=== PATIENT | female | born 1995 | race Caucasian/White ===

== ENCOUNTER 2016-04-06 19:08 | Emergency (ER) | payer OTHER ==
[~2016-04-06] VITALS: Ht 165.1 cm; Wt 85.1 kg
[~2016-04-06 19:08] MED LIST: ETONMIS VAGRING
[2016-04-06 19:18] VITALS: TEMP 37; Ht 165.1 cm; Wt 85.1 kg
[2016-04-06] MEDS ORDERED: GLC500 PO (20:32)
--- NOTE | 2016-04-06 21:29 | DIAGNOSTIC IMAGING REPORT ---
CHEST 2 VIEWS ROUTINE HISTORY: Fever. Chest congestion. Cough. COMPARISON: Chest 06/14/2015. FINDINGS: The lungs are clear. Cardiac silhouette is normal in size. No pleural effusions. No pneumothorax. IMPRESSION: No acute process. Electronically signed by: Junior Harrell M.D. 04/06/2016 9:28 PM Dictated Date/Time: 04/06/2016 9:27 PM
[2016-04-06] MEDS ORDERED: ALBUTEROL HFA 8 GM INHALER INH ONE (21:30)
[2016-04-06] MEDS ORDERED: AZITHROMYCIN 250 MG TAB PO ONE (21:30)
[2016-04-06] MEDS ORDERED: AZIT250T PO (21:33)
[2016-04-06 21:40] VITALS: BP 143/96; PULSE 87; O2SAT 95
--- NOTE | 2016-04-07 01:40 | EMERGENCY ROOM VISIT NOTE ---
History Report prepared by Bárbara: Nery Mehta Under the Supervision of: Dr. Chacho Galeana M.D. First contact with patient: 19:50 Chief Complaint: FLU LIKE SX Stated Complaint: BRONCHITIS History of Present Illness The patient is a 20 year old female who presents to the Emergency Room with complaints of constant flu-like symptoms for the past 4 days. She states that her symptoms have improved slightly. She reports a productive cough with greenish-yellow sputum. She is also feeling occasionally short of breath. She has not taken her temperature but has felt feverish. She notes chills. The patient has been experiencing generalized body aches that are worse in the morning and resolve throughout the day. She states that she has been feeling more "run down." She rates her current pain as a 1/10 in severity. The patient denies vomiting, abdominal pain, pain or swelling in her legs, chance of , and any sick contacts. Source of History: patient Onset: 4 days ago Position: other (global) Symptom Intensity: 1/10 Quality: other (flu-like) Timing: constant Modifying Factors (Worsening): other (time) Modifying Factors (Relieving): other (morning) Associated Symptoms: + SOB, + chills, + cough, + fevers, No abdominal pain, No vomiting Review of Systems See HPI for pertinent positives & negatives. A total of 10 systems reviewed and were otherwise negative. Past Medical & Surgical Medical Problems: (1) No significant past medical history (2) PCOS (polycystic ovarian syndrome) Surgical Problems: (1) No history of previous surgery Family History FH: hypertension Social History Smoking Status: Never Smoker Alcohol Use: occasionally Marital Status: single Housing Status: lives with family Occupation Status: employed Current/Historical Medications Scheduled Azithromycin (Zithromax), 250 MG PO DAILY Etonogestrel/Ethinyl Estradiol (Nuvaring), 1 EA VAGRING MONTHLY Metformin HCl (Metformin HCl), 500 MG PO BID Allergies Coded Allergies: BEE STING (Verified Allergy, Unknown, ., 04/06/16) Pineapple (Unverified Allergy, Unknown, MOUTH TINGLY, 04/06/16) Physical Exam Vital Signs Date Time Temp Pulse Resp B/P Pulse Ox O2 Delivery O2 Flow Rate FiO2 04/06/16 21:40 87 20 143/96 95 04/06/16 21:17 87 20 143/96 95 Room Air 04/06/16 19:18 37.0 91 20 131/82 99 Room Air Physical Exam Constitutional: Vital signs reviewed. Eyes: Pupils are equal round reactive to light. Conjunctiva are noninjected. ENT: Pharynx is clear without erythema or exudate. Mucous membranes are moist. Neck supple without meningeal signs. Respiratory: Clear to auscultation bilaterally. Breath sounds are equal bilaterally. No wheezing or rales. Cardiovascular: Regular rate and rhythm. No rubs or gallops. GI: Soft, nondistended and nontender. Bowel sounds are present. Musculoskeletal: No peripheral edema. No lower extremity tenderness. Integumentary: No cyanosis. Neurological: The patient is awake and alert. No focal deficits. Psychiatric: Normal affect. Medical Decision & Procedures ER Provider Diagnostic Interpretation: Radiology results as stated below per my review and the radiologist's interpretation: CHEST 2 VIEWS ROUTINE HISTORY: Fever. Chest congestion. Cough. COMPARISON: Chest 06/14/2015. FINDINGS: The lungs are clear. Cardiac silhouette is normal in size. No pleural effusions. No pneumothorax. IMPRESSION: No acute process. Electronically signed by: Junior Harrell M.D. 04/06/2016 9:28 PM Laboratory Results Test 04/06/16 20:27 Influenza Type A Antigen Neg for Influ A (NEG) Influenza Type B Antigen Neg for Influ B (NEG) Laboratory results as reviewed by me. Medications Administered Medications (Trade) Dose Ordered Sig/Oren Route Start Time Stop Time Status Last Admin Dose Admin Albuterol (Ventolin Hfa Inhaler) 2 puffs NOW ONCE INH 04/06/16 21:30 04/06/16 21:31 DC 04/06/16 21:36 60 PUFFS Azithromycin (Zithromax Tab) 500 mg NOW ONCE PO 04/06/16 21:30 04/06/16 21:31 DC 04/06/16 21:36 500 MG ED Course 1950: The patient was evaluated in room A10. A complete history and physical exam was performed. 2126: I reassessed the patient at this time. She is feeling better and resting comfortably. I discussed the results and treatment plan with the patient. I answered all pertaining questions that she had. She expressed understanding and verbalized agreement. The patient will be discharged home. 2129: Azithromycin 500 mg PO, Albuterol 2 puffs INH. Medical Decision This is a 20-year-old female who presents with flulike symptoms. Differential diagnosis includes bronchitis, pneumonia, sinusitis, influenza, viral syndrome. I did perform a limited focused review of portions of the patient's old chart on the electronic medical record. The patient has had no recent pertinent visits to this hospital. I did evaluate the patient as noted above. I did order and personally review the patient's chest x-ray as described above. There is no evidence of pneumonia. I did order a rapid flu test which was negative. I did discuss the test results with the patient. She was treated with Zithromax 500 mg and discharged with a prescription for Zithromax. She was also given an albuterol inhaler as she states that in the past status helped her when she had bronchitis. She was advised follow up with her doctor and discharged in good condition. Impression Primary Impression: Acute bronchitis Scribe Attestation The scribe's documentation has been prepared under my direct and personally reviewed by me in its entirety. I confirm that the note above accurately reflects all work, treatment, procedures, and medical decision making performed by me. Departure Information Dispostion Home / Self-Care Prescriptions Azithromycin (Zithromax) 250 Mg Tab 250 MG PO DAILY, #4 TAB Prov: Chacho Galeana M.D. 04/06/16 Referrals Brian Jarrett D.O[facility] (PCP) Forms HOME CARE DOCUMENTATION FORM, IMPORTANT VISIT INFORMATION, Work Instructions Patient Instructions ED Bronchitis Abx Tx, My [facility] Additional Instructions You have been examined and treated today on an emergency basis only. This is not a substitute for, or an effort to provide, complete comprehensive medical care. It is impossible to recognize and treat all injuries or illnesses in a single emergency department visit. It is therefore important that you follow up closely with your physician. Call as soon as possible for an appointment. Return for worsening symptoms or if you develop fever, vomiting, trouble breathing or any other concerning symptoms. Problem Qualifiers Primary Impression: Acute bronchitis Bronchitis organism: unspecified organism Qualified Codes: J20.9 - Acute bronchitis, unspecified
== END 2016-04-06 21:41 | disposition home or self-care (01) ==
LOC: C.EDB 19:09 → C.EDA 21:41
DX: J20.9 Acute bronchitis, unspecified (principal)

== ENCOUNTER → 2016-09-26 | Outpatient (CLI) | payer OTHER ==
[~2016-09-26] MED LIST changes: +AZIT250T PO; +GLC500 PO
[2016-09-26 15:07] LABS: BLOOD UREA NITROGEN 9 mg/dl (7-18); BUN/CREATININE RATIO 12.3 (10-20); CALCIUM 9.1 mg/dl (8.5-10.1); CARBON DIOXIDE 27 mmol/L (21-32); CHLORIDE 107 mmol/L (98-107); CREATININE 0.73 mg/dl (0.60-1.20); GLUCOSE 97 mg/dl (70-99); POTASSIUM 3.8 mmol/L (3.5-5.1); SODIUM 140 mmol/L (136-145)
[2016-09-26 15:18] LABS: INSULIN FASTING 45.5 mU/L (3-25)
[2016-09-27 07:38] LABS: ESTIMATED AVERAGE GLUCOSE 100 mg/dl; HA1C FLAG Normal (Normal)
--- NOTE | 2016-09-30 10:21 | CODING QUERY MEDICAL NECESSITY ---
CQSUPPORTING DIAGNOSIS NEEDED A supporting diagnosis is required for the test/procedure performed on this patient in order for us to be reimbursed by the patient's insurance. Please provide a supporting diagnosis for the following test/procedure listed below next to the test name along with your signature. *If there is no additional diagnosis for this patient that would support the following test/procedure please document that below next to the test/procedure. Test(s)/Procedure(s) that require a supporting diagnosis: DOS 09/26/16 VITAMIN D TEST HEMOGLOBIN TEST Provider Signature: Date: Thank you Marian Mahmood [facility] Information Management Once completed, please kindly fax back to [phone] For questions please call [phone]
== END | disposition home or self-care (01) ==
LOC: C.LAB1850 12:48
PROVIDERS: ATTEND Internal Medicine Endocrinology, Diabetes & Metabolism
DX: E28.2 Polycystic ovarian syndrome (principal); R73.01 Impaired fasting glucose; L40.9 Psoriasis, unspecified; N91.2 Amenorrhea, unspecified

== ENCOUNTER → 2017-07-03 | Outpatient (CLI) | payer OTHER ==
[~2017-07-03] MED LIST changes: -AZIT250T PO
== END | disposition home or self-care (01) ==
LOC: C.LABSPEC 13:11
PROVIDERS: ATTEND Physician Assistant
DX: Z11.8 Encounter for screening for other infectious and parasitic diseases (principal); Z11.3 Encounter for screening for infections with a predominantly sexual mode of transmission